=== PATIENT | male | born 1980 | race Caucasian/White ===

== ENCOUNTER 2017-10-05 16:28 | Emergency (ER) | payer BC, OTHER ==
[2017-10-05 16:59] VITALS: BP 126/94
--- NOTE | 2017-10-05 18:07 | UC ---
Respiratory Complaint HPI - HPI Summary HPI Summary: Patient is a 36-year-old male presenting to the with complaint of cough with yellow and green sputum production, fever, sweats, chills over the past week. He denies any fever today, however has been taking ibuprofen and Tylenol intermittently. Continues to complain of sweats and chills off-and-on. Endorses also sore throat and bilateral ear pain. He states he is otherwise healthy and has never had pneumonia or bronchitis. Denies any sick contacts. Immunizations are up-to-date. He takes no tuvp-ckd-copytle medications. - History of Current Complaint Chief Complaint: UCGeneralIllness Stated Complaint: COUGH Time Seen by Provider: 10/05/17 17:05 Hx Obtained From: Patient Onset/Duration: Gradual Onset - Allergies the left Timing: Constant Severity Initially: Moderate Severity Currently: Moderate Pain Intensity: 2 Pain Scale Used: 0-10 Numeric Character: Cough: Productive Aggravating Factors: Exertion, Deep Breaths, Recumbent Position Alleviating Factors: Upright Position Associated Signs And Symptoms: Positive: Dyspnea, Fever, Chills, URI, Nasal Congestion - Risk Factors Pulmonary Embolism Risk Factors: Negative Cardiac Risk Factors: Negative Pseudomonas Risk Factors: Negative Tuberculosis Risk Factors: Negative - Allergies/Home Medications Allergies/Adverse Reactions: Allergies Allergy/AdvReac Type Severity Reaction Status Date / Time Penicillins Allergy Intermediate unknow Verified 10/05/17 17:00 PMH/Surg Hx/FS Hx/Imm Hx Previously Healthy: Yes - Surgical History Surgical History: None Surgery Procedure, Year, and Place: juan - Social History Occupation: Employed Full-time Lives: With Family Alcohol Use: Weekly Alcohol Amount: 3 drinks a week Substance Use Type: None Smoking Status (MU): Former Smoker Type: Cigarettes Amount Used/How Often: 6 cigs/day Have You Smoked in the Last Year: Yes - Immunization History Most Recent Influenza Vaccination: never Most Recent Tetanus Shot: up to date Review of Systems Constitutional: Fever, Chills, Fatigue Skin: Negative Respiratory: Shortness Of Breath, Cough Cardiovascular: Negative Motor: Negative Neurovascular: Negative Is Patient Immunocompromised?: No All Other Systems Reviewed And Are Negative: Yes Physical Exam Triage Information Reviewed: Yes Appearance: Well-Appearing, No Pain Distress, Well-Nourished Vital Signs: Initial Vital Signs Temp 98.1 F 10/05/17 16:54 Pulse 73 08/03/18 16:54 Resp 18 10/05/17 16:54 BP 126/94 10/05/17 16:54 Pulse Ox 99 10/05/17 16:54 Vital Signs Reviewed: Yes Eye Exam: Normal Neck exam: Normal Neck: Positive: Supple, No Lymphadenopathy Respiratory Exam: Normal Respiratory: Positive: No respiratory distress, Rhonchi - mild bilateral without evidence of consolidation go ahead Cardiovascular Exam: Normal Cardiovascular: Positive: RRR Musculoskeletal Exam: Normal Musculoskeletal: Positive: Strength Intact Neurological: Positive: Alert Psychological: Positive: Normal Response To Family Skin Exam: Normal UC Diagnostic Evaluation - Laboratory O2 Sat by Pulse Oximetry: 99 Respiratory Course/Dx - Course Course Of Treatment: On physical examination, lungs have rhochi mild, bilateral without evidence of consolidation. TMs without erythema. No pharyngeal erythema noted. Continues to cough with sputum production. He is given azithromycin as well as Robitussin with codeine. If he develops worsening symptoms, we'll obtain an x-ray at that time. He will be treated for a bacterial bronchitis. - Differential Dx/Diagnosis Differential Diagnosis/HQI/PQRI: Bronchitis Provider Diagnoses: Bronchitis Discharge - Sign-Out/Discharge Documenting (check all that apply): Patient Departure - Discharge Plan Condition: Stable Disposition: HOME Prescriptions: Azithromyxin SAUL (NF) [Z-Saul (Zithromax) 250 mg tabs #6] 2 tab PO .TODAY, THEN 1 DAILY #6 tab guaiFENesin/CODIEN 100MG-10MG* [Robitussin AC 100Mg-10Mg*] 10 ml PO Q6H PRN #80 udc MDD 40 PRN Reason: Cough Patient Education Materials: Acute Bronchitis (ED) Referrals: Carissa Lazo MD [Primary Care Provider] - Additional Instructions: Robitussin with codeine up to every 6 hours as needed for cough or only at bedtime Azithromycin for bacterial bronchitis - Billing Disposition and Condition Condition: STABLE Disposition: Home
== END 2017-10-05 17:40 | disposition home or self-care (01) ==
LOC: UCEAST 16:28
DX: Z87.891 Personal history of nicotine dependence (principal); J40 Bronchitis, not specified as acute or chronic
CPT/HCPCS: 99212; G0463